=== PATIENT | female | born 1980 | race Caucasian/White ===

== ENCOUNTER 2016-05-18 21:00 | Emergency (ER) | payer BC ==
--- NOTE | 2016-05-18 21:48 | ER Document Report ---
ED Medical Screen (RME) - General Stated Complaint: FELL/RIGHT ARM PAIN Time seen by provider: 21:43 Mode of Arrival: Ambulatory Information source: Patient Notes: 35-year-old female injured her distal clavicle/shoulder when I skating last night when she put her arm out. Tender distal clavicle, non tender humerus. I have greeted and performed a rapid initial assessment of this patient. A comprehensive ED assessment, evaluation of the patient, analysis of test results , and completion of the medical decision making process will be conducted by additional ED providers. TRAVEL OUTSIDE OF THE [place] IN LAST 30 DAYS: No - Related Data Allergies/Adverse Reactions: codeine Allergy (Verified 05/18/16 21:44)
--- NOTE | 2016-05-18 23:25 | ER Document Report ---
ED General - General Chief Complaint: Arm Injury Stated Complaint: FELL/RIGHT ARM PAIN Mode of Arrival: Ambulatory Notes: Patient is a 35 show female presents for complaint of right shoulder pain. Patient was rollerskating last night and fell onto her right shoulder. She says that she has pain whenever she flexes her shoulder 4. She's able to fully abduct her shoulder without difficulty. Slight tingling type sensation going into her fingers. 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 No pain in her hand or wrist or elbow. Pain is mostly pinpoint and posterior aspect of her shoulder and also small area on the anterior aspect of her shoulder. No swelling or deformities. No neck pain or injury. TRAVEL OUTSIDE OF THE [place] IN LAST 30 DAYS: No - Related Data Allergies/Adverse Reactions: codeine Allergy (Verified 05/18/16 21:44) Past Medical History - General Information source: Patient - Social History Smoking Status: Never Smoker Chew tobacco use (# tins/day): No Frequency of alcohol use: None Family History: Reviewed & Not Pertinent Renal/ Medical History: Denies: Hx Peritoneal Dialysis Surgical Hx: Negative - Immunizations Hx Diphtheria, Pertussis, Tetanus Vaccination: Yes Review of Systems - Review of Systems Notes: My Normal Review Basic REVIEW OF SYSTEMS: CONSTITUTIONAL : Denies fever, chills, or sweats. Denies recent illness. MUSCULOSKELETAL: Right shoulder pain SKIN: Denies rash or skin lesions. NEUROLOGICAL: Tingling sensation into hand. No weakness in hand. ALL OTHER SYSTEMS REVIEWED AND NEGATIVE. Physical Exam - Vital signs Vitals: Temp Pulse BP Pulse Ox 97.5 F 81 112/73 97 05/18/16 21:23 05/18/16 21:23 05/18/16 21:23 05/18/16 21:23 - Notes Notes: General Appearance: Well nourished, alert, cooperative, no acute distress, no obvious discomfort. Well-appearing. Vitals: reviewed, See vital signs table. Neck: Supple, no neck tenderness, Extremities: strength 5/5 in all extremities, good pulses in all extremities, some pinpoint pain to palpation over the posterior aspect of the right shoulder and also some some pain over the medial anterior aspect of the right shoulder. Patient is able to fully abduct the shoulder without pain. She has pain mostly when she goes to flex. When she gets approximately 70 of flexion she starts having pain. Skin: warm, dry, appropriate color, no rash Neuro: speech clear, oriented x 3, normal affect, responds appropriately to questions. Course - Vital Signs Vital signs: Temp Pulse Resp BP Pulse Ox 97.5 F 78 16 112/73 98 05/18/16 21:44 05/18/16 21:44 05/18/16 21:44 05/18/16 21:44 05/18/16 21:44 - Transfer of Care Notes: 05/19/16 00:21 I suspect patient most likely has a shoulder strain, rotator cuff tear, or possible impingement syndrome of her right shoulder. I will give her sling for comfort. I will have her follow-up with the orthopedist in one week if she continues to have any symptoms. Patient encouraged return to ER if she has worsening of her symptoms. Patient agrees with plan will be discharged home. Discharge - Discharge Clinical Impression: Right shoulder strain Qualifiers: Encounter type: initial encounter Qualified Code(s): S46.911A - Strain of unspecified muscle, fascia and tendon at shoulder and upper arm level, right arm , initial encounter Condition: Good Disposition: HOME, SELF-CARE Additional Instructions: Please wear the sling as needed for comfort. Please be sure to take your arm out of the sling several times a day to place your shoulder through some range of motion so that you do not develop a frozen shoulder. Please call the orthopedic office if you are still having pain with movement of your shoulder after one week. The orthopedic office number will be under the name, Dr. German , in your discharge instructions. Please return to ER if you have any further concerns. Forms: Special Work Note Referrals: LIV GERMAN MD [ACTIVE STAFF] - Follow up in 1 week
[2016-05-19 00:35] VITALS: BP 111/82
== END 2016-05-19 00:36 | disposition home or self-care (01) ==
LOC: ER 21:00
DX: S46.911A Strain of unspecified muscle, fascia and tendon at shoulder and upper arm level, right arm, initial encounter (principal); V00.121A Fall from non-in-line roller-skates, initial encounter; Z88.6 Allergy status to analgesic agent
CPT/HCPCS: 99283

== ENCOUNTER → 2017-07-26 | Outpatient (CLI) | payer BC ==
[2017-07-26 09:51] LABS: ABSOLUTE BASOPHILS # (AUTO) 0.1 10^3/uL (0.0-0.2); ABSOLUTE EOSINOPHILS # (AUTO) 0.2 10^3/uL (0.0-0.6); ABSOLUTE LYMPHOCYTES (AUTO) 2.7 10^3/uL (0.5-4.7); ABSOLUTE MONOCYTES (AUTO) 0.5 10^3/uL (0.1-1.4); ABSOLUTE NEUT (AUTO) 4.5 10^3/uL (1.7-8.2); EOSINOPHILS % (AUTO) 2.1 % (0-6); HEMATOCRIT 39.5 % (36.0-47.0); HEMOGLOBIN 13.3 g/dL (12.0-15.5); LYMPHOCYTES % (AUTO) 34.4 % (13-45); MEAN CORPUSCULAR HEMOGLOBIN 29.5 pg (27.0-33.4); MEAN CORPUSCULAR HGB CONC 33.6 g/dL (32.0-36.0); MEAN CORPUSCULAR VOLUME 88 fl (80-97); MONOCYTES % (AUTO) 6.1 % (3-13); PLATELET COUNT 340 10^3/uL (150-450); RED BLOOD COUNT 4.51 10^6/uL (3.72-5.28); SEGMENTED NEUTROPHILS % (AUTO) 56.4 % (42-78); TOTAL CELLS COUNTED % (AUTO) 100 %; WHITE BLOOD COUNT 7.9 10^3/uL (4.0-10.5)
[2017-07-26 10:08] LABS: ALANINE AMINOTRANSFERASE 30 U/L (9-52); ALBUMIN 4.2 g/dL (3.5-5.0); ALKALINE PHOSPHATASE 72 U/L (38-126); ANION GAP 11 (5-19); ASPARTATE AMINO TRANSFERASE 16 U/L (14-36); BILIRUBIN,DIRECT 0.2 mg/dL (0.0-0.4); BILIRUBIN,TOTAL 0.4 mg/dL (0.2-1.3); BLOOD UREA NITROGEN 14 mg/dL (7-20); CALCIUM 9.6 mg/dL (8.4-10.2); CARBON DIOXIDE 27 mmol/L (22-30); CHLORIDE 108 mmol/L (98-107); CHOLESTEROL 138.53 mg/dL (0-200); GLUCOSE 96 mg/dL (75-110); POTASSIUM 4.1 mmol/L (3.6-5.0); SODIUM 145.6 mmol/L (137-145); TOTAL PROTEIN 7.2 g/dL (6.3-8.2); TRIGLYCERIDES 84 mg/dL (<150); URIC ACID 5.4 mg/dL (2.5-7.0)
[2017-07-26 10:19] LABS: DIRECT LDL 75 mg/dL (<100)
[2017-07-29 07:06] LABS: CYCLIC CITRUL PEPTIDE IGG/A AB 8 units (0-19)
== END ==
LOC: LAB 09:24
PROVIDERS: ATTEND Family Medicine Geriatric Medicine
DX: E66.9 Obesity, unspecified (principal); L50.9 Urticaria, unspecified; M25.541 Pain in joints of right hand; M25.542 Pain in joints of left hand; Z79.899 Other long term (current) drug therapy
CPT/HCPCS: 36415; 80053; 80061; 84443; 84550; 85025; 86038; 86200; 86430